=== PATIENT | male | born 1995 | race Caucasian/White ===

== ENCOUNTER 2020-10-13 02:40 | Emergency (ER) | payer OTHER ==
[~2020-10-13] VITALS: Ht 185.4 cm; Wt 97.5 kg
[2020-10-13 04:21] LABS: HEMATOCRIT 45.7 % (42.0-52.0); HEMOGLOBIN 15.7 gm/dL (14.0-18.0); MCH 30.8 pg (26.0-34.0); MCHC 34.4 g/dL (28.0-37.0); MCV 89.7 fL (80.0-100.0); MPV 8.5 fl. (7.2-11.1); RBC 5.09 mil/uL (4.50-6.00); RDW-CV 13.2 % (10.5-14.5); WBC 4.9 thou/uL (4.0-11.0)
[2020-10-13 04:44] LABS: CALCIUM 9.1 mg/dL (8.5-10.1); POTASSIUM 3.8 mmol/L (3.5-5.1)
[2020-10-13 04:49] LABS: ALBUMIN 4.3 g/dL (3.4-5.0); TOTAL BILIRUBIN 0.4 mg/dL (<0.1-1.0)
[2020-10-13] MEDS ORDERED: MUPIROCIN15 GM TOP (05:00)
[2020-10-13] MEDS ORDERED: TORADOL 10 MG T10 MG PO (05:00)
[2020-10-13] MEDS ORDERED: HYDROCODON-ACE1 EAC7 PO (05:00)
[2020-10-13 05:53] VITALS: BP 143/77
== END 2020-10-13 05:53 | disposition home or self-care (01) ==
LOC: M.ERS 02:40
PROVIDERS: Personal Emergency Response Attendant
DX: L03.115 Cellulitis of right lower limb (principal); L02.611 Cutaneous abscess of right foot; W57.XXXA Bitten or stung by nonvenomous insect and other nonvenomous arthropods, initial encounter; Y93.89 Activity, other specified; Y92.89 Other specified places as the place of occurrence of the external cause; Y99.8 Other external cause status

== ENCOUNTER 2021-01-22 20:32 | Emergency (ER) | payer OTHER ==
[~2021-01-22] VITALS: Ht 182.9 cm; Wt 99.8 kg
[~2021-01-22 20:32] MED LIST: HYDROCODON-ACE1 EAC7 PO; MUPIROCIN15 GM TOP; TORADOL 10 MG T10 MG PO
[2021-01-22 20:34] VITALS: BP 132/91
== END 2021-01-22 22:27 | disposition home or self-care (01) ==
LOC: M.ERS 20:32
DX: Z20.822 Contact with and (suspected) exposure to COVID-19 (principal)